=== PATIENT | male | born 1950 | race Caucasian/White ===

== ENCOUNTER → 2019-08-15 08:59 | Outpatient (CLI) | payer OTHER, SELFPAY ==
[2019-08-15 08:47] VITALS: BMI 27.6
--- NOTE | 2019-08-15 09:02 | RAD_ITS ---
STUDY: X-RAY - LEFT KNEE REASON FOR EXAM: Bilateral knee pain. TECHNIQUE: 4 view(s) of the knee. COMPARISON: None. FINDINGS: Normal visualized distal femur. Normal visualized proximal tibia and fibula. Normal proximal tibiofibular articulation. There is severe joint space narrowing of the medial femorotibial compartment. Normal lateral femorotibial compartment. There is small marginal osteophytes and moderate joint space narrowing of the patellofemoral articulation. The soft tissue structures are unremarkable. RAD/Knee 4 or More Views IMPRESSION: Arthrosis of the medial femorotibial and patellofemoral compartments. Electronically Signed: Mikhail Castillo MD at 9:41 EDT Tel , Service support ,
--- NOTE | 2019-08-15 09:02 | RAD_ITS ---
STUDY: X-RAY - RIGHT KNEE REASON FOR EXAM: Bilateral knee pain. TECHNIQUE: 4 view(s) of the knee. COMPARISON: None. FINDINGS: Normal visualized distal femur. Normal visualized proximal tibia and fibula. Normal proximal tibiofibular articulation. There are small marginal osteophytes and moderate joint space narrowing of the medial femorotibial compartment. There is a small marginal osteophyte without joint space narrowing of the lateral femorotibial compartment. There are small marginal osteophytes and moderate joint space narrowing of the patellofemoral articulation. The soft tissue structures are unremarkable. RAD/Knee 4 or More Views IMPRESSION: Arthrosis of the medial femorotibial and patellofemoral compartments. Electronically Signed: Mikhail Castillo MD at 9:41 EDT Tel , Service support ,
== END ==
PROVIDERS: PCP Family Medicine; Referring Provider Orthopaedic Surgery; Visit Provider Orthopaedic Surgery
DX: M17.0 Bilateral primary osteoarthritis of knee (principal)
CPT/HCPCS: 73564

== ENCOUNTER 2023-02-18 13:41 | Observation (INO) | payer OTHER, SELFPAY ==
[2023-02-18] VITALS (15 sets, daily range): BP systolic 106–175; BP diastolic 68–84; PULSE 58–85; RESP 14–20; TEMP 36.4–36.8; O2SAT 94–98; BMI 27.7; BMI 26.8
--- NOTE | 2023-02-18 14:15 | EKG12_ITS ---
Test Reason : STROKE TEAM Blood Pressure : / mmHG Vent. Rate : 062 BPM Atrial Rate : 062 BPM P-R Int : 168 ms QRS Dur : 092 ms QT Int : 440 ms P-R-T Axes : 044 -30 021 degrees QTc Int : 446 ms Normal sinus rhythm Left axis deviation Abnormal ECG Confirmed by TU FINNEY, MELANIE ([id number]), writer editor PERNELL PARK ([id number]) on 02/22/2023 8:17:33 AM Referred By: Confirmed By:VERONICA MAE MD
--- NOTE | 2023-02-18 14:15 | CT_ITS ---
STUDY: CT HEAD STROKE PROTOCOL W/O CONTRAST INJECTION REASON FOR EXAM: Male, 72 years old. Neuro deficit, acute, stroke suspected RADIATION DOSAGE (If Supplied By Facility): CTDIvol = ( 47.06 ) mGy, DLP = ( 978.55 ) mGycm TECHNIQUE: Transaxial CT imaging of the brain was performed without administration of intravenous contrast material. Individualized dose optimization techniques were used for this CT. COMPARISON: No relevant priors. FINDINGS: Normal soft tissue structures. Normal calvarium. There is mild cerebral atrophy with widening of the extra-axial spaces and ventricular dilatation. There are areas of decreased attenuation within the white matter tracts of the supratentorial brain, consistent with microvascular disease changes. There are small punctate calcifications of the basal ganglia which are seen in the aging brain as a normal variant. Normal brainstem. Normal cerebellum. There is no intracranial hemorrhage. There are no findings of an acute ischemic infarction. Normal visualized paranasal sinuses. ASPECT score: 10 CT/STROKE Brain/Head without Cont IMPRESSION: Chronic involutional changes of the brain. N.B. : The above Results were Read Back by Orion Arango MD to Dr Francy DO, and understanding confirmed on 02/18/2023 14:34:36 (ET). Electronically Signed: Orion Arango MD at 14:35 EST ,
--- NOTE | 2023-02-18 14:16 | CT_ITS ---
STUDY: CTA HEAD AND NECK WITH CONTRAST REASON FOR EXAM: Male, 72 years old. Neuro deficit, acute, stroke suspected RADIATION DOSAGE (If Supplied By Facility): CTDIvol = ( 60.8 ) mGy, DLP = ( 998.77 ) mGycm TECHNIQUE: CT angiography was performed with a multi-detector CT scanner. Data acquisition was obtained from the skull base through the vertex following intravenous administration of IV 100mL Isovue-370. MIP images were reconstructed from the axial data set. Post-processing of the angiographic images was performed, with multiplanar reformation and 3D reconstruction. Individualized dose optimization techniques were used for this CT. COMPARISON: No relevant priors. FINDINGS: Normal bilateral petrous carotid arteries. Normal right cavernous carotid artery with a normal supraclinoid bifurcation. Normal left cavernous carotid artery with a normal supraclinoid bifurcation. Normal right A1 segments of the anterior cerebral artery. Normal left A1 segments of the anterior cerebral artery. Normal intact anterior communicating artery (ACOM). Normal bilateral A2 segments of the anterior cerebral arteries. Normal right M1 and M2 segments of the middle cerebral arteries, with a normal M1 bifurcation. Normal left M1 and M2 segments of the middle cerebral arteries, with a normal M1 bifurcation. Normal right posterior communicating artery (PCOM). Normal left posterior communicating artery (PCOM). Normal bilateral vertebral arteries. Normal basilar artery with a normal basilar bifurcation. The visualized bilateral superior cerebellar (SCA) arteries are normal. Normal bilateral P1, P2 and visualized P3 segments of the posterior cerebral arteries. There is no demonstrated aneurysm of the [place] of [place]. Chronic involutional changes of the brain. Small benign-appearing submental lymph nodes. AORTIC ARCH: There is atherosclerotic calcific plaque formation of the aortic arch and great vessels arising from the aortic arch, without a hemodynamically significant stenosis. There is a normal origin of the brachiocephalic, left common carotid, and left subclavian arteries. RIGHT CAROTID ARTERIES: Normal right common carotid artery (CCA). Normal right common carotid bulb. There is mild atherosclerotic plaque formation of the origin of the right internal carotid artery with less than 50% cross sectional diameter stenosis. Normal visualized cervical portion of the right internal carotid artery. Normal origin of the right external carotid artery (ECA). LEFT CAROTID ARTERIES: Normal left common carotid artery (CCA). Normal left common carotid bulb. There is mild atherosclerotic plaque formation of the origin of the left internal carotid artery with less than 50% cross sectional diameter stenosis. Normal visualized cervical portion of the left internal carotid artery. Normal origin of the left external carotid artery (ECA). VERTEBRAL ARTERIES: There is enhancement within the bilateral vertebral arteries with a small right vertebral artery, and a dominant left vertebral artery. CT/STROKE CTA Head AND Neck W/Con IMPRESSION: Mild atherosclerotic calcific plaques at the origin of the right and left internal carotid arteries causing less than 50% luminal stenosis. N.B. : The above Results were Read Back by Orion Arango MD to Dr Francy DO, and understanding confirmed on 02/18/2023 14:44:29 (ET). Electronically Signed: Orion Arango MD at 14:45 EST ,
--- NOTE | 2023-02-18 14:22 | ED.RN ---
[address] DOWNING, SHE WAS AWARE OF SQUAD REPORT.
--- NOTE | 2023-02-18 14:27 | EX.ED.UPPERE ---
HPI History of Present Illness Chief Complaint: Upper Extremity Injury Informant: patient and spouse/S.O. Narrative Narrative: Patient is a 72-year-old male with remote history of TIA as well as GERD presenting with sudden onset of right arm numbness and weakness. Patient states he was on a ladder trying to use a wrench to loosen the screw and was trying to use the shoulder to help with this when suddenly his right arm went completely numb and limp to his side. He really denies any trauma. Denies associated pain. States he now feels like his arm is just a bunch of wet rag to resolve able to move it now. He continues to have paresthesias but has some sensation back in his arm. Does have a history of with cells and rotator cuff injury to his shoulders chronically [facility] [place] [facility] Medical History (Updated 02/18/23 @ 23:[address] Elena Sen DO) Arm numbness Former smoker GERD (gastroesophageal reflux disease) Migraines Home Medications aspirin 81 mg tablet,delayed release (Shakila Low Dose Aspirin) 81 mg PO DAILY 08/15/19 [History Last Taken Unknown] omeprazole 20 mg capsule,delayed release 20 mg PO DAILY 08/15/19 [History Last Taken Unknown] psyllium husk 0.4 gram capsule (Metamucil) 0.4 g PO DAILY 02/18/23 [History Last Taken Unknown] Allergy/AdvReac Type Severity Reaction Status Date / Time No Known Allergies Allergy Verified 02/18/23 13:43 Family History (Updated 02/18/23 @ 16:[address] Nakul Lynch MD) Other Heart disease Social History Smoking Status: Never smoker ROS ROS ED Constitutional Constitutional ED: Denies chills or fever(s) Eyes Eyes: Denies blurry vision or change in vision Cardiovascular Cardiovascular: Denies chest pain Respiratory/Chest Respiratory/Chest: Denies cough or dyspnea Gastrointestinal Gastrointestinal: Denies abdominal pain, nausea or vomiting Musculoskeletal Musculoskeletal: Denies myalgias or neck pain Integumentary Denies Abrasions or rash Neurologic Neurologic: Reports paresthesias and weakness; Denies headache(s) Hematologic/Lymphatic Hematologic/Lymphatic: Denies easy bleeding or easy bruising EXAM Physical Exam Const Vital Signs: 02/18/23 13:43 02/18/23 14:19 Temperature 98 F Temperature Source Temporal Pulse Rate 65 Respiratory Rate 14 Blood Pressure 153/73 H Blood Pressure Mean 99 Pulse Ox 98 Oxygen Delivery Method Room Air Room Air Positive well nourished and well developed General Appearance ED: well developed and NAD HEENT Reports moist mucous membranes Eyes PERRL and EOMs intact bilaterally Neck full ROM and supple General: Negative for tenderness Chest Wall inspection of chest normal and palpation of chest normal Resp normal respiratory effort and clear to auscultation bilaterally Cardio regular rate, regular rhythm and no murmurs GI non-tender and non-distended Neuro oriented x3 and CN's II-XII intact bilaterally Neuro Narrative: NIH 2, see below. Paresthesias diffusely of the right upper extremity with weakness of the right upper extremity. Normal tone throughout. The weakness and paresthesia does not follow a dermatomal pattern and is diffuse. Sensorium / Orientation: alert Psych mental status grossly normal Skin Lesions: no lesions Rashes: no rashes MDM MDM MDM Narrative Medical decision making narrative: Evaluated for sudden onset of significant weakness (unable to move his right upper extremity) and numbness of his right upper extremity. Upon arrival symptoms are improving and his strength is returning however he does seem weak in the arm. Vital signs significant for mild hypertension. Continues to have of subjective paresthesias but sensation is intact to touch. He had been working manually and potentially using his shoulder to try to get a wrench to move the symptoms started however he had no associated pain to make me suspect peripheral nerve/muscular process. In addition his weakness/numbness does not follow any dermatomal pattern. Because of this, stroke alert was called. Patient evaluated by teleneurology who agrees that this would be an atypical presentation of a stroke and he is not a TNK candidate due to resolving and low NIH. He does recommend admission for MRI of the brain and also recommends a MRI of the cervical spine in case this is more of a peripheral/cervical radiculopathy causing his symptoms. Lab work shows mild anemia of unknown clinical significance other significant abnormalities. Chest x-ray reviewed by myself as well as radiology does not show any acute process. CTA of the head and neck shows mild atherosclerotic calcified plaques at the origin of the right and left internal carotid artery causing less than 50% luminal stenosis. I do not suspect an LVO I do not think any transferred. Patient will be admitted for further stroke evaluation. Discussed with admitting physician, Dr. Lynch. Parenteral diagnosis includes intracranial hemorrhage, stroke, TIA and radiculopathy Radiography Chest X-Ray - ED: 1 View, Read by ED Physician, Read by Radiologist and No Acute Disease Rhythm Strip Rhythm Strip: Sinus Rhythm Rate: 62 Ectopy: None EKG Initial EKG: Attestation: I personally reviewed and interpreted this EKG as follows: Interpretation: Sinus Rhythm Comments: Normal sinus rhythm rate of 62 bpm Left axis deviation Normal intervals Normal St segments Management Discussion w/another healthcare provider: Hospitalist, Clinical Athletic Instructor (Neurology ) and Radiologist Discharge Plan Dx/Rx/DC Orders Clinical Impression: TIA (transient ischemic attack), Right arm weakness, Right arm numbness Disposition Disposition: Acute Care Hospital [facility] Discharge Date/Time: 02/18/23 17:35 NIHSS NIHSS 1a. Level of Consciousness: Alert; keenly responsive 1b. LOC Questions: Answers BOTH questions correctly. 1c. LOC Commands: Performs both tasks correctly. 3. Visual: No visual loss 4. Facial Palsy: Normal symmetrical movements 5a. Left Arm: No drift; arm holds 90 (or 45) degrees for full 10 seconds 5b. Right Arm: Drift; arm drifts downward but doesn?t hit the bed 6a. Left Leg: No drift; leg holds 30-degree position for full 5 seconds 6b. Right Leg: No drift; leg holds 30-degree position for full 5 seconds 7. Limb Ataxia: Absent 8. Sensory: [id number] sensory loss; (RUE) 9. Best Language: No aphasia; normal 10. Dysarthria: Normal 11. Extinction and Inattention: No abnormality Total: 2 Stroke Questions Stroke Team Activated: Yes a.Reviewed Inclusion/Exclusion criteria: Yes Was Patient considered for Endovascular Intervention?: No IV Thrombolytic Administered: No
[2023-02-18 14:31] LABS: Absolute Lymphocyte Count 2.31 X10^3/uL (0.83-4.51); Absolute Neutrophil Count 2.7 X10^3/uL (2.0-7.7); Basophil# 0.03 X10^3/uL; Basophil% 0.5 % (0-1); Eosinophil# 0.09 X10^3/uL; Eosinophils% 1.6 % (0-5); Hematocrit 38.7 % (40-54); Hemoglobin 12.5 g/dL (13.0-16.5); Lymphocyte # 2.31 X10^3/ul (0.83-4.51); Lymphocyte % 41.7 % (19-41); Mean Corp Hgb Conc 32.3 g/dL (32-36); Mean Corpuscular Hgb 31.4 pg (27.0-32.0); Mean Corpuscular Volume 97.2 fL (80-94); Mean Platelet Vol. 11.4 fl (6.2-12.0); Monocyte# 0.44 X10^3/uL; Monocyte% 7.9 % (0-10); NRBC Flagged by Analyzer 0 % (0-5); Neutrophil # 2.65 X10^3/uL (2.7-7.7); Neutrophil % 47.9 % (47-70); Platelet Count 208 K/mm3 (150-450); RBC Distribution Width CV 12.4 % (11.6-14.6); RBC Distribution Width SD 44.8 fl (35.1-43.9); Red Blood Count 3.98 M/mm3 (4.6-6.2); White Blood Count 5.5 K/mm3 (4.4-11.0)
[2023-02-18 14:44] LABS: Bedside Glucose 88 mg/dL (74-106)
[2023-02-18 14:44] LABS: Anion Gap 2 (5-15); BUN 18 mg/dL (7-18); BUN/Creat Ratio 23.7 RATIO (10-20); Calcium,Total 8.9 mg/dL (8.5-10.1); Chloride 108 mmol/L (98-107); Creatinine, Serum 0.76 mg/dL (0.70-1.30); EST Glomerular Filtration Rate 108 mL/min (>60); Est Glom Filt Rate - Afr Amer 130 mL/min (>60); Estimated Creatinine Clearance 75.44 ml/min; Glucose 110 mg/dL (74-106); Potassium 3.6 mmol/L (3.5-5.1); Sodium Level 139 mmol/L (136-145); Troponin-I HS 9 pg/mL (3.0-78.0)
--- NOTE | 2023-02-18 14:46 | CHAPLAIN ---
Type of Pastoral Visit ___ Initial Visit ___ Follow-up Visit ___ On-call Visit ___ General Patient Visit ___ Spiritual Assessment ___ Family Conference ___ Bereavement _x__ Rapid Response ___ Code Blue ___ Other (describe below) Pastoral Care Referral From ___ Patient ___ Family ___ Nurse ___ Physician ___ Data Services Developer ___ Auxiliary Equipment Operator _x__ Other (describe below) Sacrament/Intervention _x__ Active listening ___ Anointing ___ Restoration ___ Bereavement ___ Communion ___ Angelita exploration ___ ___ Life review ___ Prayer ___ Reconciliation ___ Sacrament of Sick _x__ Supportive presence ___ Wedding ___ Other (describe below) Pastoral Comments responded to stroke alert; pt was in CT at the time; spouse is in the room; spouse is offered presence and support; gave water to spouse; listened to description of health need of her ; spouse declined any further support at this time
[2023-02-18 14:48] LABS: International Normalized Ratio 1.1; Partial Thromboplast Time 28.3 Seconds (24.1-36.2); Prothrombin Time (Protime)PT. 14.1 SECONDS (11.7-14.9)
[2023-02-18] MEDS: 0.9% Normal Saline (1000mL) 1,000 ML 100 ML IV (14:50)
--- NOTE | 2023-02-18 14:55 | RAD_ITS ---
STUDY: X-RAY CHEST REASON FOR EXAM: Male, 72 years old. Neuro deficit, acute, stroke suspected TECHNIQUE: Single AP portable view of the chest. COMPARISON: None. FINDINGS: EKG electrodes are seen. The lungs are clear and expanded. There is no demonstrated pleural abnormality. Normal size heart. Normal mediastinum and diana. Normal visualized pulmonary arteries. There is atherosclerotic calcification of the aortic arch with tortuosity. Normal visualized thoracic spine. There is degenerative osteoarthritis of the bilateral shoulders. There is no demonstrated abnormality of the visualized soft tissue structures of the upper abdomen. RAD/Chest 1 View IMPRESSION: The lungs are clear. Electronically Signed: Orion Arango MD at 15:28 EST ,
--- NOTE | 2023-02-18 16:45 | HP.PCM.HOS_ITS ---
HPI - General General Date of Admission: 02/18/23 HPI Narrative REBECCA MILIAN, is a 72 M who presents to the hospital with symptoms concerning for stroke. Today he was out working outside and was on a ladder and he was using his right arm when it suddenly just stopped working and dropped to his side. He has since regained mobility in his right arm but he still has some numbness and paresthesias. He has been having some mild neck pain recently so neurology was concerned that he could also have a nerve impingement and recommended an MRI of the neck. CTA of the head and neck was unremarkable for an LVO. [facility] Medical History Arm numbness Home Medications aspirin 81 mg tablet,delayed release (Shakila Low Dose Aspirin) 81 mg PO DAILY 08/15/19 [History Last Taken Unknown] omeprazole 20 mg capsule,delayed release 20 mg PO DAILY 08/15/19 [History Last Taken Unknown] psyllium husk 0.4 gram capsule (Metamucil) 0.4 g PO DAILY 02/18/23 [History Last Taken Unknown] Allergy/AdvReac Type Severity Reaction Status Date / Time No Known Allergies Allergy Verified 02/18/23 13:43 Family History (Updated 02/18/23 @ 16:[address] Nakul Lynch MD) Other Heart disease no surgical history Social History Smoking Status: Never smoker ROS Constitutional Constitutional: Denies chills, fatigue, fever(s) or malaise Eyes Eyes: Denies blurry vision ENT HEENT: Denies headache(s) or nasal discharge Cardiovascular Cardiovascular: Denies chest pain, dyspnea on exertion or syncope Respiratory/Chest Respiratory/Chest: Denies cough, shortness of breath at rest or shortness of breath with exertion Gastrointestinal Gastrointestinal: Denies constipation, diarrhea, nausea or vomiting Genitourinary Genitourinary: Denies dysuria Neurologic Neurologic: Reports focal weakness and paresthesias; Denies numbness or tremor(s) Psychiatric Psychiatric: Denies anxiety or depression Vital Signs Vital Signs Vital Signs: 02/18/23 13:43 02/18/23 14:19 02/18/23 14:15 Temperature 98 F Temperature Source Temporal Pulse Rate 65 85 Respiratory Rate 14 18 Blood Pressure 153/73 H 175/81 H Blood Pressure Mean 99 112 Pulse Ox 98 98 Oxygen Delivery Method Room Air Room Air Room Air 02/18/23 14:26 02/18/23 14:45 02/18/23 15:15 Temperature 98 F Temperature Source Oral Pulse Rate 81 76 60 Respiratory Rate 18 20 H 16 Blood Pressure 147/84 H 137/77 H 137/82 H Blood Pressure Mean 105 97 100 Pulse Ox 98 94 95 Oxygen Delivery Method Room Air Room Air Room Air 02/18/23 15:30 02/18/23 16:00 Temperature Temperature Source Pulse Rate 61 60 Respiratory Rate 16 18 Blood Pressure 142/78 H 133/75 H Blood Pressure Mean 99 94 Pulse Ox 95 96 Oxygen Delivery Method Room Air Room Air Weight Weight: 204 lb 5.896 oz Body Mass Index (BMI) 27.7 Physical Exam Narrative General: Alert, Oriented x3, Cooperative, No apparent distress HEENT: Atraumatic, PERRLA, EOMI, Normocephalic Oral: Moist Mucosa Neck: Supple, No JVD Lungs: Clear to auscultation, Normal air movement, No rhonchi, No wheeze, No rales Cardiovascular: Regular rate, Regular Rhythm, Normal S1, Normal S2, No murmurs Abdomen: Soft, Non Tender, Non-Distended, No Hepato-splenomegaly Extremities: No edema, Capillary Refill Less than 3 Seconds Skin: No rashes, No breakdown Musculoskeletal: No Tenderness to Palpation of Joints or Extremities Neurological: Cranial nerves II-XII grossly intact, Motor Exam 5/5 strength throughout, Sensory exam intact to light touch and pain, numbness in his right arm with an NIH of 1 Psych/Mental Status: Normal Affect, Appropriate Results Lab / Micro Data 02/18/23 14:20 02/18/23 14:20 Labs: Laboratory Results - last 24 hr 02/18/23 14:20: WBC 5.5, RBC 3.98 L, Hgb 12.5 L, Hct 38.7 L, MCV 97.2 H, MCH 31.4, MCHC 32.3, RDW Std Deviation 44.8 H, RDW Coeff of Vy 12.4, Plt Count 208, MPV 11.4, Immature Gran % (Auto) 0.400, Neut % (Auto) 47.9, Lymph % (Auto) 41.7 H, Wil[place]ger % (Auto) 7.9, Eos % (Auto) 1.6, Baso % (Auto) 0.5, Absolute Neuts (auto) 2.7, Absolute Lymphs (auto) 2.31, Nucleated RBC % 0, PT 14.1, INR 1.1, APTT 28.3, Sodium 139, Potassium 3.6, Chloride 108 H, Carbon Dioxide 29.0, Anion Gap 2 L, BUN 18, Creatinine 0.76, Estim Creat Clear Calc 75.44, Est GFR (MDRD) Af Amer 130, Est GFR (MDRD) Non-Af 108, BUN/Creatinine Ratio 23.7 H, Glucose 110 H, Calcium 8.9, Troponin I High Sens 9 02/18/23 14:27: POC Glucose [address] 02/18/23 14:15 IMPRESSION: Chronic involutional changes of the brain. N.B. : The above Results were Read Back by Orion Aragno MD to Dr Francy DO, and understanding confirmed on 02/18/2023 14:34:36 (ET). Electronically Signed: Orion Arango MD at 14:35 EST , ADDENDUM: 02/18/23 1442 IMPRESSION: Chronic involutional changes of the brain. N.B. : The above Results were Read Back by Orion Arango MD to Dr Francy DO, and understanding confirmed on 02/18/2023 14:34:36 (ET). Electronically Signed: Orion Arango MD at 14:35 EST , Head/Neck CTA 02/18/23 14:16 IMPRESSION: Mild atherosclerotic calcific plaques at the origin of the right and left internal carotid arteries causing less than 50% luminal stenosis. N.B. : The above Results were Read Back by Orion Arango MD to Dr Francy DO, and understanding confirmed on 02/18/2023 14:44:29 (ET). Electronically Signed: Orion Arango MD at 14:45 EST , ADDENDUM: 02/18/23 1452 IMPRESSION: Mild atherosclerotic calcific plaques at the origin of the right and left internal carotid arteries causing less than 50% luminal stenosis. N.B. : The above Results were Read Back by Orion Arango MD to Dr Francy DO, and understanding confirmed on 02/18/2023 14:44:29 (ET). Electronically Signed: Orion Arango MD at 14:45 EST , Chest X-Ray 02/18/23 14:55 IMPRESSION: The lungs are clear. Electronically Signed: Orion Arango MD at 15:28 EST , Assessment & Plan Assessment/Plan (1) TIA (transient ischemic attack): PLAN: Plan 1. TIA versus cervical nerve impingement ? We will obtain an MRI of the is brain as well as an echo ? He is already on aspirin we will add Lipitor ? We will also obtain an MRI of the cervical spine to evaluate for possible nerve impingement per the recommendation of neurology 2. GERD ? Stable ? Continue with PPI DVT: Ambulation 75 minutes was spent on direct patient care, including documentation as well as chart review and collaboration with colleagues Charges/Coding Visit Charges Inpatient E&M: 73115 Init Hosp L3
--- NOTE | 2023-02-18 17:46 | MRI_ITS ---
EXAM: MR CERVICAL SPINE WITHOUT INTRAVENOUS CONTRAST CLINICAL INDICATION: cervical nerve impingement on the right. -- Recommended by neurology TECHNIQUE: Multiplanar and multisequence MR images of the cervical spine without intravenous contrast were performed. COMPARISON: No relevant prior studies available. FINDINGS: VERTEBRAE: No acute fracture. Mild multilevel endplate degenerative signal changes. Multilevel endplate osteophytosis and facet arthrosis. Possible ankylosis of the left C5-C6 facet joints. SPINAL CORD: Mild multilevel mass effect upon the spinal cord without distinct spinal cord signal abnormality. SOFT TISSUES: No significant abnormality. No prevertebral soft tissue swelling. LYMPH NODES: No significant abnormality. There is no cervical adenopathy. DISCS/SPINAL CANAL/NEURAL FORAMINA: C2-C3: Bilateral facet arthrosis. No disc herniation, spinal canal stenosis, or neural foraminal narrowing. C3-C4: Disc height loss and disc desiccation. Central disc herniation and bilateral facet and uncovertebral joint arthrosis with moderate bilateral neural foraminal narrowing and moderate spinal canal stenosis. C4-C5: Central disc herniation and bilateral facet and uncovertebral joint arthrosis. Moderate spinal canal stenosis and mild bilateral neural foraminal narrowing. C5-C6: Bilateral facet and uncovertebral joint arthrosis. Moderate right greater than left neural foraminal narrowing. Mild central disc herniation and endplate osteophytosis. Mild spinal canal stenosis. Right foraminal small perineural cyst. C6-C7: Disc height loss and disc desiccation. Right central to foraminal disc herniation and moderate to severe bilateral facet and uncovertebral joint arthrosis. Moderate to severe bilateral neural foraminal narrowing and mild spinal canal stenosis. C7-T1: Bilateral facet arthrosis. No disc herniation, spinal canal stenosis, or neural foraminal narrowing. MRI/Spine Cervical (Routine) IMPRESSION: Multilevel degenerative changes as detailed above. No spinal cord signal abnormality. There may be at least abutment of the bilateral C3, right C6, and bilateral C7 nerve roots. Electronically Signed: Gagan Dale DO at 20:31 EST ,
--- NOTE | 2023-02-18 17:46 | MRI_ITS ---
We are attempting to reach an attending provider to discuss findings. An addendum with communication details will be sent when the communication is complete. EXAM: MR HEAD WITHOUT INTRAVENOUS CONTRAST CLINICAL INDICATION: CVA TECHNIQUE: Multiplanar and multisequence MR images of the brain were obtained without intravenous contrast. COMPARISON: CT head and CT angiogram head, same date. FINDINGS: BRAIN AND EXTRA-AXIAL SPACES: There are multiple small foci of cortical restricted diffusion within the left posterior frontal lobe and left parietal lobe indicating small acute cortical infarcts. Chronic cortical infarct in the left parietal lobe. Periventricular and subcortical T2 and T2 FLAIR hyperintensity is nonspecific although most commonly due to chronic microvascular ischemic changes in a patient of this age. No intra- or extra-axial hemorrhage. No intracranial mass or mass effect. Posterior fossa structures are unremarkable. No hydrocephalus. Basal cisterns are patent. SELLA: No significant abnormality. Normal sella turcica, pituitary gland, infundibular stalk, optic chiasm and hypothalamus. AUDITORY SYSTEM: No significant abnormality. The internal auditory canals are patent. BONES/JOINTS: No significant abnormality. No discrete lytic or blastic abnormalities. SINUSES: Normal as visualized. Clear. MASTOID AIR CELLS: Normal as visualized. Clear. ORBITS: Normal as visualized. Both globes, extraocular muscles, optic nerves and retrobulbar fat appear unremarkable. VASCULATURE: Normal as visualized. Normal flow voids in the major intracranial circulation. MRI/Brain without Contrast IMPRESSION: 1. Multiple small left posterior frontal and parietal acute cortical infarcts. 2. Chronic cortical infarct in the left parietal lobe. 3. Additional chronic ischemic changes as above. Electronically Signed: Gagan Dale DO at 20:25 EST ,
--- NOTE | 2023-02-18 21:33 | NURSING ---
Dr. Shiraz Vigil is currently on the unit. MRI results were reviewed by this RN and Dr. Vigil. Core measures currently in place and Dr. Vigil is ordering teleNeurology consult. Marcial KIRK
--- NOTE | 2023-02-18 21:49 | PN.HOSP_ITS ---
Hospitalist Note I was called by nurse and informed this patient had an MRI this evening that was positive for acute CVA that is likely cardioembolic in origin in the frontal and parietal regions with results noted below. He also seems to have evidence of carotid artery disease. Neurology recommends patient should be strongly considered for JANIE if the standard echocardiogram is suggestive of pathology. The teleneurologist also specifically asked me to record her request that the daytime hospitalist review her note when the opportunity becomes available. [facility] Imaging Services [address] [place] [address] Brain without Contrast MR#: [id number] Acct: [id number] Name: REBECCA MILIAN Rep #: [id number] : 1950 M 72 From: Gagan Dale DO PCP: Dr. Pablo Hernandez MD Status: ADM JACKELYN Study: Brain without Contrast Date of Exam: 02/18/23 Exam# [id number] Ordering Dr: Nakul Lynch MD ADDENDUM by Dr. Gagan Dale DO on 02/18/23 at 202 EXAM: MR HEAD WITHOUT INTRAVENOUS CONTRAST CLINICAL INDICATION: CVA TECHNIQUE: Multiplanar and multisequence MR images of the brain were obtained without intravenous contrast. COMPARISON: CT head and CT angiogram head, same date. FINDINGS: BRAIN AND EXTRA-AXIAL SPACES: There are multiple small foci of cortical restricted diffusion within the left posterior frontal lobe and left parietal lobe indicating small acute cortical infarcts. Chronic cortical infarct in the left parietal lobe. Periventricular and subcortical T2 and T2 FLAIR hyperintensity is nonspecific although most commonly due to chronic microvascular ischemic changes in a patient of this age. No intra- or extra-axial hemorrhage. No intracranial mass or mass effect. Posterior fossa structures are unremarkable. No hydrocephalus. Basal cisterns are patent. SELLA: No significant abnormality. Normal sella turcica, pituitary gland, infundibular stalk, optic chiasm and hypothalamus. AUDITORY SYSTEM: No significant abnormality. The internal auditory canals are patent. BONES/JOINTS: No significant abnormality. No discrete lytic or blastic abnormalities. SINUSES: Normal as visualized. Clear. MASTOID AIR CELLS: Normal as visualized. Clear. ORBITS: Normal as visualized. Both globes, extraocular muscles, optic nerves and retrobulbar fat appear unremarkable. VASCULATURE: Normal as visualized. Normal flow voids in the major intracranial circulation. 02/18/232024 Date cc: Dr. Pablo Hernandez MD; Dr. Nakul Lynch MD ~* Signed ADDENDUM by Dr. Gagan Dale DO on 02/18/23 at 2024 MRI/Brain without Contrast IMPRESSION: 1. Multiple small left posterior frontal and parietal acute cortical infarcts. 2. Chronic cortical infarct in the left parietal lobe. 3. Additional chronic ischemic changes as above. N.B. : The above Results were Read Back by Gagan Dale DO to Nellie Lundberg RN, and understanding confirmed on 02/18/2023 21:03:54 (ET). Electronically Signed: Gagan Dale DO at 20:25 EST , 02/18/232109 Date cc: Dr. Pablo Hernandez MD; Dr. Nakul Lynch MD ~* Signed We are attempting to reach an attending provider to discuss findings. An addendum with communication details will be sent when the communication is complete. EXAM: MR HEAD WITHOUT INTRAVENOUS CONTRAST CLINICAL INDICATION: CVA TECHNIQUE: Multiplanar and multisequence MR images of the brain were obtained without intravenous contrast. COMPARISON: CT head and CT angiogram head, same date. FINDINGS: BRAIN AND EXTRA-AXIAL SPACES: There are multiple small foci of cortical restricted diffusion within the left posterior frontal lobe and left parietal lobe indicating small acute cortical infarcts. Chronic cortical infarct in the left parietal lobe. Periventricular and subcortical T2 and T2 FLAIR hyperintensity is nonspecific although most commonly due to chronic microvascular ischemic changes in a patient of this age. No intra- or extra-axial hemorrhage. No intracranial mass or mass effect. Posterior fossa structures are unremarkable. No hydrocephalus. Basal cisterns are patent. SELLA: No significant abnormality. Normal sella turcica, pituitary gland, infundibular stalk, optic chiasm and hypothalamus. AUDITORY SYSTEM: No significant abnormality. The internal auditory canals are patent. BONES/JOINTS: No significant abnormality. No discrete lytic or blastic abnormalities. SINUSES: Normal as visualized. Clear. MASTOID AIR CELLS: Normal as visualized. Clear. ORBITS: Normal as visualized. Both globes, extraocular muscles, optic nerves and retrobulbar fat appear unremarkable. VASCULATURE: Normal as visualized. Normal flow voids in the major intracranial circulation. MRI/Brain without Contrast IMPRESSION: 1. Multiple small left posterior frontal and parietal acute cortical infarcts. 2. Chronic cortical infarct in the left parietal lobe. 3. Additional chronic ischemic changes as above. Electronically Signed: Gagan Dale DO at 20:25 EST , CC: Dr. Pablo Hernandez MD; Dr. Nakul Lynch MD ~ Tip Cementer: Signed
[2023-02-18] MEDS: Atorvastatin Calcium 80 MG Tablet PO (22:27)
[2023-02-19 01:17] VITALS: BMI 26.8
[2023-02-19 02:00] VITALS: BP 129/77; PULSE 66; RESP 14; TEMP 36.3; O2SAT 96
--- NOTE | 2023-02-19 02:40 | NURSING ---
This RN discussed with the charge nurse allowing the patient's to remain here overnight with the patient.
[2023-02-19 06:00] VITALS: BP 129/78; PULSE 62; RESP 16; TEMP 36.1; O2SAT 94
[2023-02-19 06:09] LABS: Absolute Lymphocyte Count 1.78 X10^3/uL (0.83-4.51); Absolute Neutrophil Count 1.8 X10^3/uL (2.0-7.7); Basophil# 0.03 X10^3/uL; Basophil% 0.7 % (0-1); Eosinophil# 0.23 X10^3/uL; Eosinophils% 5.4 % (0-5); Hematocrit 37.9 % (40-54); Hemoglobin 12.3 g/dL (13.0-16.5); Lymphocyte # 1.78 X10^3/ul (0.83-4.51); Lymphocyte % 41.6 % (19-41); Mean Corp Hgb Conc 32.5 g/dL (32-36); Mean Corpuscular Hgb 32.1 pg (27.0-32.0); Monocyte# 0.44 X10^3/uL; Monocyte% 10.3 % (0-10); NRBC Flagged by Analyzer 0 % (0-5); Platelet Count 183 K/mm3 (150-450); RBC Distribution Width CV 12.6 % (11.6-14.6); RBC Distribution Width SD 45.7 fl (35.1-43.9); Red Blood Count 3.83 M/mm3 (4.6-6.2); White Blood Count 4.3 K/mm3 (4.4-11.0)
[2023-02-19 06:45] LABS: Anion Gap 2 (5-15); BUN 12 mg/dL (7-18); BUN/Creat Ratio 20.5 RATIO (10-20); Calcium,Total 8.6 mg/dL (8.5-10.1); Chloride 110 mmol/L (98-107); Cholesterol 151 mg/dL (200); Creatinine, Serum 0.58 mg/dL (0.70-1.30); EST Glomerular Filtration Rate 146 mL/min (>60); Est Glom Filt Rate - Afr Amer 177 mL/min (>60); Estimated Creatinine Clearance 75.44 ml/min; Glucose 97 mg/dL (74-106); High Density Lipoprotein 46 mg/dL; Potassium 3.8 mmol/L (3.5-5.1); Sodium Level 140 mmol/L (136-145); Triglycerides 56 mg/dL; Very Low Density Lipoprotein 11 mg/dL (5-40)
--- NOTE | 2023-02-19 08:01 | PCM.PN.HOSP ---
Reason for Visit Reason for Visit: Diagnoses Transient cerebral ischemic attack, unspecified (02/18/23) Objective Data Objective Data Vital Signs: Vital Signs Temp Pulse Resp BP Pulse Ox O2 Del Method 97.0 F L 62 16 129/78 H 94 Room Air 02/19/23 06:00 02/19/23 06:00 02/19/23 06:00 02/19/23 06:00 02/19/23 06:00 02/19/23 06:00 Oxygen Delivery Method Room Air Weight: 197 lb 14.4 oz Body Mass Index (BMI) 26.8 Intake & Output: Intake and Output for Last 24 Hours 02/17/23 02/18/23 02/19/23 23:59 23:59 23:59 Intake Total 1000 / 1400 600 / 600 Balance 1000 / 1400 600 / 600 Lab / Micro Data 02/19/23 05:05 02/19/23 05:05 Labs: Laboratory Results - last 24 hr 02/18/23 14:20: WBC 5.5, RBC 3.98 L, Hgb 12.5 L, Hct 38.7 L, MCV 97.2 H, MCH 31.4, MCHC 32.3, RDW Std Deviation 44.8 H, RDW Coeff of Vy 12.4, Plt Count 208, MPV 11.4, Immature Gran % (Auto) 0.400, Neut % (Auto) 47.9, Lymph % (Auto) 41.7 H, [place] % (Auto) 7.9, Eos % (Auto) 1.6, Baso % (Auto) 0.5, Absolute Neuts (auto) 2.7, Absolute Lymphs (auto) 2.31, Nucleated RBC % 0, PT 14.1, INR 1.1, APTT 28.3, Sodium 139, Potassium 3.6, Chloride 108 H, Carbon Dioxide 29.0, Anion Gap 2 L, BUN 18, Creatinine 0.76, Estim Creat Clear Calc 75.44, Est GFR (MDRD) Af Amer 130, Est GFR (MDRD) Non-Af 108, BUN/Creatinine Ratio 23.7 H, Glucose 110 H, Calcium 8.9, Troponin I High Sens 9 02/18/23 14:27: POC Glucose 88 02/19/23 05:05: WBC 4.3 L, RBC 3.83 L, Hgb 12.3 L, Hct 37.9 L, MCV 99.0 H, MCH 32.1 H, MCHC 32.5, RDW Std Deviation 45.7 H, RDW Coeff of Vy 12.6, Plt Count 183, MPV 11.0, Immature Gran % (Auto) 0.000, Neut % (Auto) 42.0 L, Lymph % (Auto) 41.6 H, [place] % (Auto) 10.3 H, Eos % (Auto) 5.4 H, Baso % (Auto) 0.7, Absolute Neuts (auto) 1.8 L, Absolute Lymphs (auto) 1.78, Nucleated RBC % 0, Sodium 140, Potassium 3.8, Chloride 110 H, Carbon Dioxide 28.0, Anion Gap 2 L, BUN 12, Creatinine 0.58 L, Estim Creat Clear Calc 75.44, Est GFR (MDRD) Af Amer 177, Est GFR (MDRD) Non-Af 146, BUN/Creatinine Ratio 20.5 H, Glucose 97, Calcium 8.6, Triglycerides 56, Cholesterol 151, LDL Cholesterol 94, VLDL Cholesterol 11, HDL Cholesterol 46 Radiography Diagnostic Testing: Radiology Impression Brain CT 02/18/23 14:15 IMPRESSION: Chronic involutional changes of the brain. N.B. : The above Results were Read Back by Orion Arango MD to Dr Francy DO, and understanding confirmed on 02/18/2023 14:34:36 (ET). Electronically Signed: Orion Arango MD at 14:35 EST , ADDENDUM: 02/18/23 1442 IMPRESSION: Chronic involutional changes of the brain. N.B. : The above Results were Read Back by Orion Arango MD to Dr Francy DO, and understanding confirmed on 02/18/2023 14:34:36 (ET). Electronically Signed: Orion Arango MD at 14:35 EST , Head/Neck CTA 02/18/23 14:16 IMPRESSION: Mild atherosclerotic calcific plaques at the origin of the right and left internal carotid arteries causing less than 50% luminal stenosis. N.B. : The above Results were Read Back by Orion Arango MD to Dr Francy DO, and understanding confirmed on 02/18/2023 14:44:29 (ET). Electronically Signed: Orion Arango MD at 14:45 EST , ADDENDUM: 02/18/23 1452 IMPRESSION: Mild atherosclerotic calcific plaques at the origin of the right and left internal carotid arteries causing less than 50% luminal stenosis. N.B. : The above Results were Read Back by Orion Arango MD to Dr Francy DO, and understanding confirmed on 02/18/2023 14:44:29 (ET). Electronically Signed: Orion Arango MD at 14:45 EST , Chest X-Ray 02/18/23 14:55 IMPRESSION: The lungs are clear. Electronically Signed: Orion Arango MD at 15:28 EST , Brain MRI 02/18/23 17:46 IMPRESSION: 1. Multiple small left posterior frontal and parietal acute cortical infarcts. 2. Chronic cortical infarct in the left parietal lobe. 3. Additional chronic ischemic changes as above. Electronically Signed: Gagan Dale DO at 20:25 EST , ADDENDUM: 02/18/23 2110 IMPRESSION: 1. Multiple small left posterior frontal and parietal acute cortical infarcts. 2. Chronic cortical infarct in the left parietal lobe. 3. Additional chronic ischemic changes as above. N.B. : The above Results were Read Back by Gagan Dale DO to Nellie Lundberg RN, and understanding confirmed on 02/18/2023 21:03:54 (ET). Electronically Signed: Gagan Dale DO at 20:25 EST , Cervical Spine MRI 02/18/23 17:46 IMPRESSION: Multilevel degenerative changes as detailed above. No spinal cord signal abnormality. There may be at least abutment of the bilateral C3, right C6, and bilateral C7 nerve roots. Electronically Signed: Gagan Dale DO at 20:31 EST , Rhythm Strip Rhythm Strip: Sinus Rhythm Rate: 62 Ectopy: None Physical Exam Narrative General: Alert, Oriented x3, Cooperative, No apparent distress HEENT: Atraumatic, PERRLA, EOMI, Normocephalic Oral: Moist Mucosa Neck: Supple, No JVD Lungs: Clear to auscultation, Normal air movement, No rhonchi, No wheeze, No rales Cardiovascular: Regular rate, Regular Rhythm, Normal S1, Normal S2, No murmurs Abdomen: Soft, Non Tender, Non-Distended, No Hepato-splenomegaly Extremities: No edema, Capillary Refill Less than 3 Seconds Skin: No rashes, No breakdown Musculoskeletal: No Tenderness to Palpation of Joints or Extremities Neurological: Cranial nerves II-XII grossly intact, Motor Exam 5/5 strength throughout, Sensory exam intact to light touch and pain, numbness in his right arm with an NIH of 1 Psych/Mental Status: Normal Affect, Appropriate Assessment & Plan Assessment/Plan (1) TIA (transient ischemic attack): PLAN: Plan 72-year-old gentleman with remote history of TIA came to ED with sudden onset of right arm numbness and weakness when he was trying to use the wrench to loosen the screw while on the ladder. He felt his right shoulder was numb and limp on his side. No trauma. No associated pain. 1. TIA versus cervical nerve impingement ? We will obtain an MRI of the is brain as well as an echo ? He is already on aspirin we will add Lipitor ? We will also obtain an MRI of the cervical spine to evaluate for possible nerve impingement per the recommendation of neurology 2. GERD ? Stable ? Continue with PPI DVT: Ambulation Clinical Impression(s) from Imaging Studies Brain CT 02/18/23 14:15 IMPRESSION: Chronic involutional changes of the brain. Head/Neck CTA 02/18/23 14:16 IMPRESSION: Mild atherosclerotic calcific plaques at the origin of the right and left internal carotid arteries causing less than 50% luminal stenosis. Chest X-Ray 02/18/23 14:55 IMPRESSION: The lungs are clear. Brain MRI 02/18/23 17:46 IMPRESSION: 1. Multiple small left posterior frontal and parietal acute cortical infarcts. 2. Chronic cortical infarct in the left parietal lobe. 3. Additional chronic ischemic changes as above. Cervical Spine MRI 02/18/23 17:46
[2023-02-19 08:08] VITALS: O2SAT 95
[2023-02-19 09:08] VITALS: BP 143/67; PULSE 61; RESP 16; TEMP 36.8; O2SAT 97
[2023-02-19] MEDS: Aspirin E.C. 81 MG Tablet PO (09:17)
[2023-02-19] MEDS: Pantoprazole Sodium 20 MG Tablet PO (09:17)
--- NOTE | 2023-02-19 09:40 | ECHOD_ITS ---
Reason For Study: TIA/CVA Procedure This was a 2D Doppler, Color Flow transthoracic echocardiogram. Exam performed portable in patient room. Left Ventricle Normal LV size. The estimated ejection fraction is 65 %. Unable to assess diastolic dysfunction. No regional wall motion abnormalities noted. Right Ventricle Normal RV size. Normal systolic function. Atria The left atrium is mildly enlarged. Normal right atrium. No doppler evidence for ASD. Bubble contrast study negative for right to left interatrial shunt. Mitral Valve There is moderate mitral annular calcification. There is no mitral valve stenosis. No mitral valve insufficiency. Tricuspid Valve There is no tricuspid stenosis. Trivial tricuspid valve insufficiency. Unable to estimate RV systolic pressure due to insufficient tricuspid regurgitant envelope. Aortic Valve Trisinus/trileaflet aortic valve. There is no aortic stenosis. No aortic valve insufficiency. Pulmonic Valve There is no pulmonic valvular stenosis. No pulmonic valve insufficiency. Great Vessels Normal aortic root. Pericardium/Pleural No pericardial effusion. Medication Performed a rapid injection of agitated mix of 9 cc saline and 1cc air to assess for atrial septal defect. MMode/2D Measurements & Calculations LVIDd: 4.0 cm IVSd: 1.5 cm LAV(MOD-bp): 103.5 ml LVIDs: 2.4 cm LVPWd: 1.6 cm FS: 41.6 % LAV(MOD-bp) Indexed: 48.9 ml/m2 LAV(MOD-sp2): 122.7 ml LAV(MOD-sp4): 85.0 ml SV(MOD-sp4): 80.6 ml SV(sp4-el): 85.4 ml LVAd ap4: 37.1 cm2 LVLd ap4: 8.9 cm EDV(MOD-sp4): 125.4 ml EDV(sp4-el): 130.6 ml LVAs ap4: 19.6 cm2 LVLs ap4: 7.2 cm ESV(MOD-sp4): 44.8 ml ESV(sp4-el): 45.2 ml EF(MOD-sp4): 64.3 % EF(sp4-el): 65.4 % LA dimension(2D): 4.7 cm LA A4 area: 25.4 cm2 RA A4 area: 14.1 cm2 TAPSE: 2.7 cm Doppler Measurements & Calculations MV E max david: 71.2 cm/sec Lat Peak E' David: 9.1 cm/sec Med Peak E' David: 7.0 cm/sec MV A max david: 110.5 cm/sec E/E' lat: 7.8 E/E' med: 10.1 MV E/A: 0.64 MV V2 max: 132.6 cm/sec MV P1/2t max david: 74.3 cm/sec Ao V2 max: 188.7 cm/sec MV max P.0 mmHg MV P1/2t: 59.8 msec Ao max P.2 mmHg MV V2 mean: 59.5 cm/sec MV mean P.7 mmHg MV dec slope: 363.9 cm/sec2 MV V2 VTI: 36.1 cm MVA(P1/2t): 3.7 cm2 LV V1 max: 140.8 cm/sec PA V2 max: 111.2 cm/sec LV V1 max P.9 mmHg ECHO/Echo Complete Interpretation Summary The estimated ejection fraction is 65 %. Unable to assess diastolic dysfunction. The left atrium is mildly enlarged. Ordering Physician: Darrel Hogan Referring Physician: MD David Pablo Performed By: Alexia Bryson RCS
--- NOTE | 2023-02-19 09:45 | DCINST_ITS ---
Discharge Instructions Diet Discharge Diet: Low fat / Low cholesterol and 2000 mg Sodium Diet Activity Discharge Activity: Return to Normal Activity Weight Bearing Status: Weight bearing as tolerated Dressing / Incision Call your doctor if you observe: Fever of 101 or Higher, Coldness, Increased Pain, Numbness or Tingling, Change in Color, Inability to urinate, Inability to have a bowel movement, Shortness of breath, Dizziness, Fainting spells, Swelling in the ankles, Chest pain, Prolonged hiccupping, Increased palpitations (irregular heartbeat) and Calf discomfort Follow Up Care When: IN 2 WEEKS Test Results: Test results from this visit will be discussed in further detail at your follow- up appointment, if applicable. Discharge Plan Admission Admit Date/Time: 02/18/23 16:12 Primary Reason for Your Visit: Acute left-sided parietal frontal stroke. Attending Provider: Darrel Hogan Primary Care Provider: Pablo Hernandez Consulting Providers: Nakul Lynch Instructions Additional Instructions / Restrictions: Patient discharged in 30-day event monitor as per neurologist. surveillance monitor sinus rhythm. Follow-up in cardiology office if abnormal findings on event yoselyn tor. Discharge Orders/Prescriptions Prescriptions: New atorvastatin 80 mg Tablet 80 mg PO QHS Qty: 30 3RF clopidogrel 75 mg Tablet 75 mg PO DAILY Qty: 30 2RF Rx Instructions: Total 3 months. Continued omeprazole 20 mg capsule,delayed release(DR/EC) 20 mg PO DAILY psyllium husk [Metamucil] 0.4 gram capsule 0.4 g PO DAILY aspirin [Shakila Low Dose Aspirin] 81 mg tablet,delayed release (DR/EC) 81 mg PO DAILY 30 Days Qty: 30 3RF Other Ambulatory Orders: 30 Day Event Recorder Preventi (Urgent) Timeframe: 1 Day Facility: [facility] - Location: Cardiovascular Services Ordered By: Dr. Darrel Hogan Referrals / Follow Up: Pablo Hernandez MD [Primary Care Provider] - Within 1 Week Roney Jacinto MD [Non-Staff -Ordering Privileges] - Within 2 Weeks (Follow up for stroke) Disposition Disposition (needs filled in before D/C Order can be placed): Home, Self Care
[2023-02-19 10:08] VITALS: BMI 26.8
[2023-02-19 10:21] LABS: CRP < 2.90 mg/L (0.0-3.0)
[2023-02-19 10:56] LABS: Erythrocyte Sedimentation Rate 5 mm/hr (0-20)
[2023-02-19] MEDS: Clopidogrel Bisulfate 300 MG Tablet PO (11:52)
--- NOTE | 2023-02-19 12:54 | CASEMGMT ---
Social Work SW introduced self and role to patient. SW explained PHQ-9 to patient and pt agreeable to answer questions. Pt did not indicate any concerns related to PHQ-9 questions besides occasional difficulty sleeping. Pt reports sleep issues are baseline for him and have not caused any ongoing difficulty. Pt denies any other SW needs at this time. Resources not indicated as needed. Phylicia Martinez EMISSIONS TECHNICIAN, TECHNICAL CONSULTANT
--- NOTE | 2023-02-19 13:03 | DS.PCM_ITS ---
Providers Date of Admission: 02/18/23 Date of Discharge: 02/19/23 Primary Care Physician: Dr. Pablo Hernandez MD Reason For Visit: RIGHT ARM WEAKNESS Diagnosis Discharge Diagnosis (1) TIA (transient ischemic attack): Status: Acute Code(s): G45.9 - Transient cerebral ischemic attack, unspecified Plan 72-year-old gentleman with remote history of TIA came to ED with sudden onset of right arm numbness and weakness when he was trying to use the wrench to loosen the screw while on the ladder. He felt his right shoulder was numb and limp on his side. No trauma. No associated pain. 1. Multiple small left posterior frontal and parietal acute cortical infarcts and chronic cortical infarcts on left parietal lobe: Patient was admitted in PCU on front desk monitor. monitor worker shows sinus rhythm. Patient had a stroke work-up with MRI findings as mentioned in the heading. CT head and neck shows mild atherosclerotic changes in bilateral ICA less than 50%. 2D echo with contrast reported no Doppler evidence for ASD, bubble contrast read negative for [id number] interatrial shunt. EF 65%. Left atrium mildly enlarged. Troponin normal. Fasting profile shows LDL 94 HDL 46. Glucose 97. Patient Had CRP less than 2.9. ESR normal. Patient was discharged on 30-day event monitor as per [facility] neurologist. Patient was given aspirin and loading dose of Plavix. Baby aspirin and Plavix to continue for 3 months and then aspirin indefinitely. Follow-up with neurology as an outpatient. MRI C-spine reported multilevel degenerative changes. No spinal cord signal abnormality. There may be at least abutment of the bilateral C3, right C6,and bilateral C7 nerve roots. 2. GERD ? Stable ? Continue with PPI DVT: Ambulation Patient did good with PT OT and speech therapy. No residual symptoms. Patient is discharged home with follow-up with neurologist, hospital course and discharge process discussed with patient and patient's near the bedside. Prescription sent to [facility] retail pharmacy. Discharge medication reconciliation done. Discharge follow-up instructions completed. Discharge process discussed with the patient and all questions were answered to patient's satisfaction. Follow with PCP in 1 to 2 weeks Total time spent, exact 35 minutes on discharge meds reconciliation, examination, coordination of care with nurses and ancillary staff, review of imaging and blood test and discussion with the patient on follow-up instructions. 2D echo Interpretation Summary The estimated ejection fraction is 65 %. Unable to assess diastolic dysfunction. The left atrium is mildly enlarged. Clinical Impression(s) from Imaging Studies Brain CT 02/18/23 14:15 IMPRESSION: Chronic involutional changes of the brain. Head/Neck CTA 02/18/23 14:16 IMPRESSION: Mild atherosclerotic calcific plaques at the origin of the right and left internal carotid arteries causing less than 50% luminal stenosis. Chest X-Ray 02/18/23 14:55 IMPRESSION: The lungs are clear. Brain MRI 02/18/23 17:46 IMPRESSION: 1. Multiple small left posterior frontal and parietal acute cortical infarcts. 2. Chronic cortical infarct in the left parietal lobe. 3. Additional chronic ischemic changes as above. Cervical Spine MRI 02/18/23 17:46 IMPRESSION: Multilevel degenerative changes as detailed above. No spinal cord signal abnormality. There may be at least abutment of the bilateral C3, right C6, and bilateral C7 nerve roots. Medications at Discharge Home Medications omeprazole 20 mg capsule,delayed release 20 mg PO DAILY reflux 08/15/19 psyllium husk 0.4 gram capsule (Metamucil) 0.4 g PO DAILY constipation 02/18/23 aspirin 81 mg tablet,delayed release (Shakila Low Dose Aspirin) 81 mg PO DAILY 30 days #30 tabs 02/19/23 atorvastatin 80 mg tablet 80 mg PO QHS #30 tabs 02/19/23 clopidogrel 75 mg tablet 75 mg PO DAILY #30 tabs 02/19/23 Physical Exam Narrative Seen and examined. Patient states his right hand/upper extremity weakness and numbness resolved. Physical exam General: Alert, Oriented x3, Cooperative HEENT: Atraumatic, PERRLA, EOMI, Normocephalic Oral: No Gingival or Mucosal Lesions/ Ulcerations Neck: Supple, No JVD, Negative Carotid Bruits Lungs: Air entry diminished in bilateral lung bases. No crepitation/rhonchi Cardiovascular: Regular rate, Regular Rhythm, Normal S1, Normal S2, systolic murmur right second ICS. Abdomen: Bowel Sounds Present, Soft, Non Tender, Non-Distended : No renal angle tenderness. No suprapubic tenderness. Extremities: No edema, Capillary Refill Less than 3 Seconds Skin: No rashes, No breakdown Musculoskeletal: No Tenderness to Palpation of Joints or Extremities Neurological: Cranial nerves II-XII grossly intact, DTR 2+/4. Mild to moderate sensory loss on right upper extremity. NIH 1. Psych/Mental Status: Normal Affect, Appropriate. Weight / BMI Weight Weight: 197 lb 14.4 oz Body Mass Index (BMI) 26.8 ABG / Lab / Microbiology Data 02/19/23 05:05 02/19/23 05:05 Laboratory: Laboratory Results - last 24 hr 02/18/23 14:20: WBC 5.5, RBC 3.98 L, Hgb 12.5 L, Hct 38.7 L, MCV 97.2 H, MCH 31.4, MCHC 32.3, RDW Std Deviation 44.8 H, RDW Coeff of Vy 12.4, Plt Count 208, MPV 11.4, Immature Gran % (Auto) 0.400, Neut % (Auto) 47.9, Lymph % (Auto) 41.7 H, Harper % (Auto) 7.9, Eos % (Auto) 1.6, Baso % (Auto) 0.5, Absolute Neuts (auto) 2.7, Absolute Lymphs (auto) 2.31, Nucleated RBC % 0, PT 14.1, INR 1.1, APTT 28.3, Sodium 139, Potassium 3.6, Chloride 108 H, Carbon Dioxide 29.0, Anion Gap 2 L, BUN 18, Creatinine 0.76, Estim Creat Clear Calc 75.44, Est GFR (MDRD) Af Amer 130, Est GFR (MDRD) Non-Af 108, BUN/Creatinine Ratio 23.7 H, Glucose 110 H, Calcium 8.9, Troponin I High Sens 9 02/18/23 14:27: POC Glucose 88 02/19/23 05:05: WBC 4.3 L, RBC 3.83 L, Hgb 12.3 L, Hct 37.9 L, MCV 99.0 H, MCH 32.1 H, MCHC 32.5, RDW Std Deviation 45.7 H, RDW Coeff of Vy 12.6, Plt Count 183, MPV 11.0, Immature Gran % (Auto) 0.000, Neut % (Auto) 42.0 L, Lymph % (Auto) 41.6 H, Harper % (Auto) 10.3 H, Eos % (Auto) 5.4 H, Baso % (Auto) 0.7, Abs olute Neuts (auto) 1.8 L, Absolute Lymphs (auto) 1.78, Nucleated RBC % 0, ESR 5, Sodium 140, Potassium 3.8, Chloride 110 H, Carbon Dioxide 28.0, Anion Gap 2 L, BUN 12, Creatinine 0.58 L, Estim Creat Clear Calc 75.44, Est GFR (MDRD) Af Amer 177, Est GFR (MDRD) Non-Af 146, BUN/Creatinine Ratio 20.5 H, Glucose 97, Calcium 8.6, C-React Prot Ext Range < 2.90, Triglycerides 56, Cholesterol 151, LDL C holesterol 94, VLDL Cholesterol 11, HDL Cholesterol 46 Radiography Diagnostic Testing: Radiology Impression Brain CT 02/18/23 14:15 IMPRESSION: Chronic involutional changes of the brain. N.B. : The above Results were Read Back by Orion Arango MD to Dr Francy DO, and understanding confirmed on 02/18/2023 14:34:36 (ET). Electronically Signed: Orion Arango MD at 14:35 EST , ADDENDUM: 02/18/23 1442 IMPRESSION: Chronic involutional changes of the brain. N.B. : The above Results were Read Back by Orion Arango MD to Dr Francy DO, and understanding confirmed on 02/18/2023 14:34:36 (ET). Electronically Signed: Orion Arango MD at 14:35 EST , Head/Neck CTA 02/18/23 14:16 IMPRESSION: Mild atherosclerotic calcific plaques at the origin of the right and left internal carotid arteries causing less than 50% luminal stenosis. N.B. : The above Results were Read Back by Orion Arango MD to Dr Francy DO, and understanding confirmed on 02/18/2023 14:44:29 (ET). Electronically Signed: Orion Arango MD at 14:45 EST , ADDENDUM: 02/18/23 1452 IMPRESSION: Mild atherosclerotic calcific plaques at the origin of the right and left internal carotid arteries causing less than 50% luminal stenosis. N.B. : The above Results were Read Back by Orion Arango MD to Dr Francy DO, and understanding confirmed on 02/18/2023 14:44:29 (ET). Electronically Signed: Orion Arango MD at 14:45 EST , Chest X-Ray 02/18/23 14:55 IMPRESSION: The lungs are clear. Electronically Signed: Orion Arango MD at 15:28 EST , Brain MRI 02/18/23 17:46 IMPRESSION: 1. Multiple small left posterior frontal and parietal acute cortical infarcts. 2. Chronic cortical infarct in the left parietal lobe. 3. Additional chronic ischemic changes as above. Electronically Signed: Gagan Dale DO at 20:25 EST , ADDENDUM: 02/18/23 2110 IMPRESSION: 1. Multiple small left posterior frontal and parietal acute cortical infarcts. 2. Chronic cortical infarct in the left parietal lobe. 3. Additional chronic ischemic changes as above. N.B. : The above Results were Read Back by Gagan Dale DO to Nellie Lundberg RN, and understanding confirmed on 02/18/2023 21:03:54 (ET). Electronically Signed: Gagan Dale DO at 20:25 EST , Cervical Spine MRI 02/18/23 17:46 IMPRESSION: Multilevel degenerative changes as detailed above. No spinal cord signal abnormality. There may be at least abutment of the bilateral C3, right C6, and bilateral C7 nerve roots. Electronically Signed: Gagan Dale DO at 20:31 EST , D/C Instructions Discharge Diet: Low fat / Low cholesterol and 2000 mg Sodium Diet Weight Bearing Status: Weight bearing as tolerated Call your doctor if you observe: Fever of 101 or Higher, Coldness, Increased Pain, Numbness or Tingling, Change in Color, Inability to urinate, Inability to have a bowel movement, Shortness of breath, Dizziness, Fainting spells, Swelling in the ankles, Chest pain, Prolonged hiccupping, Increased palpitations (irregular heartbeat) and Calf discomfort When: IN 2 WEEKS Meaningful Use Info Meaningful Use Diagnoses (Choose all that apply): Ischemic CVA CVA Therapy Assessed for PT,OT and/or ST?: Yes Ischemic Stroke Antithrombotic order at d/c?: Yes Dx of Atrial fib/flutter?: No Anticoagulant at discharge?: Yes Statins at discharge?: Yes Primary Dx Acute Ischemic CVA?: Yes Discharge Plan Admission Admit Date/Time: 02/18/23 16:12 Primary Reason for Your Visit: Acute left-sided parietal frontal stroke. Attending Provider: Darrel Hogan Primary Care Provider: Pablo Hernandez Consulting Providers: Nakul Lynch Instructions Additional Instructions / Restrictions: Patient discharged in 30-day event monitor as per neurologist. monitor worker sinus rhythm. Follow-up in cardiology office if abnormal findings on event monitor. Discharge Orders/Prescriptions Prescriptions: New atorvastatin 80 mg Tablet 80 mg PO QHS Qty: 30 3RF clopidogrel 75 mg Tablet 75 mg PO DAILY Qty: 30 2RF Rx Instructions: Total 3 months. Continued omeprazole 20 mg capsule,delayed release(DR/EC) 20 mg PO DAILY psyllium husk [Metamucil] 0.4 gram capsule 0.4 g PO DAILY aspirin [Shakila Low Dose Aspirin] 81 mg tablet,delayed release (DR/EC) 81 mg PO DAILY 30 Days Qty: 30 3RF Other Ambulatory Orders: 30 Day Event Recorder Preventi (Urgent) Timeframe: 1 Day Facility: [facility] - Location: Cardiovascular Services Ordered By: Dr. Darrel Hogan Referrals / Follow Up: Pablo Hernandez MD [Primary Care Provider] - Within 1 Week Roney Jacinto MD [Non-Staff -Ordering Privileges] - Within 2 Weeks (Follow up for stroke) Disposition Disposition (needs filled in before D/C Order can be placed): Home, Self Care Charges/Coding Visit Charges Inpatient E&M: 29350 Disch Hosp >30min
[2023-02-19 13:09] VITALS: BP 136/93; PULSE 62; RESP 16; TEMP 36.8; O2SAT 96
--- NOTE | 2023-02-19 14:25 | PHA.DC.MR.R ---
Pharmacy [place] Med Reconciliation Pharmacy Service has performed discharge medication reconciliation for this patient. The patient's discharge medication list was reviewed for discrepancies and discrepancies were resolved. Medications at Discharge Home Medications omeprazole 20 mg capsule,delayed release 20 mg PO DAILY reflux 08/15/19 psyllium husk 0.4 gram capsule (Metamucil) 0.4 g PO DAILY constipation 02/18/23 aspirin 81 mg tablet,delayed release (Shakila Low Dose Aspirin) 81 mg PO DAILY 30 days #30 tabs 02/19/23 atorvastatin 80 mg tablet 80 mg PO QHS #30 tabs 02/19/23 clopidogrel 75 mg tablet 75 mg PO DAILY #30 tabs 02/19/23
--- NOTE | 2023-02-19 14:25 | CASEMGMT ---
Patient has order for discharge. RN CM in to discuss needs at discharge. Patient and deny needs at discharge. Patient and had no further questions or concerns at this time.
== END 2023-02-19 13:02 | disposition home or self-care (01) ==
LOC: ED 14:57 → PCU 16:50
PROVIDERS: Admitting Provider Family Medicine; Emergency Provider Emergency Medicine; PCP Family Medicine; Visit Provider Internal Medicine
DX: G45.9 Transient cerebral ischemic attack, unspecified (principal); D64.9 Anemia, unspecified; R29.898 Other symptoms and signs involving the musculoskeletal system; K21.9 Gastro-esophageal reflux disease without esophagitis; I10 Essential (primary) hypertension; Z79.82 Long term (current) use of aspirin; Z79.899 Other long term (current) drug therapy; Z87.891 Personal history of nicotine dependence
CPT/HCPCS: 70450; 70496; 70498; 70551; 71045; 72141; 80048; 80061; 82962; 84484; 85025; 85610; 85652; 85730; 86140; 92610; 93005; 93306; 94762; 96360; 97161; 97166; 99221; 99285; Q9967; G0378